=== PATIENT | female | born 1955 | race Caucasian/White ===

== ENCOUNTER 2017-04-05 15:07 | Inpatient (IN) | payer OTHER ==
[~2017-04-05] VITALS: Ht 167.6 cm; Wt 106.6 kg
--- NOTE | ~2017-04-05 | EKG ---
[place], [place] ELECTROCARDIOGRAM REPORT NAME: TANVI NUNES UNIT #: [id number] ROOM: [facility] DOCTOR: AINSLEY ZARATE MD,REJI BIRTHDATE: [birth year] DOS: 04/07/2017 Electrocardiogram done on 04/05/2017, at 4:09 p.m. Normal sinus rhythm noted. Heart rate 87 beats per minute. There was no change of ischemia or arrhythmias. REJI SCHMITZ MD CM:EKGRPT:ELECTROCARDIOGRAM REPORT [id number] REJI ZARATE MD
--- NOTE | ~2017-04-05 | PR ---
[place], [place] PROGRESS NOTE NAME: TANVI NUNES UNIT #: [id number] ROOM: 406 DOCTOR: AINSLEY ZARATE MD,REJI BIRTHDATE: [birth year] DOS: 04/07/2017 SUBJECTIVE: The patient was noted comfortable at this time, resting in the bed, noted with further reduction of the respiratory symptoms, improvement in the shortness of breath and cough. Denies symptoms of chest pain or any hemoptysis. OBJECTIVE: VITAL SIGNS: Which was recorded on the patient shows the temperature noted as normal, respiratory rate recorded as 18, heart rate 91, blood pressure 140/72. Pulse oxygen saturation of the patient was noted as 97% saturation. HEENT: Showed no acute change. NECK: Supple. CARDIOVASCULAR: S1, S2 audible. LUNGS: Noted without any wheezing or crackle. Marked improvement in air entry of the lung were noted bilaterally with occasional wheezing at this time noted. ABDOMEN: Soft, chronic obesity. EXTREMITIES: Shows chronic obesity. IMPRESSION: Progressive and gradual improvement noted in the patient's exacerbation of chronic obstructive pulmonary disease and acute bronchitis. PLAN OF TREATMENT: The patient could be considered for discharge with tapering dose of prednisone and oral antibiotics. Discharge planning was discussed with primary care attending of this patient. REJI SCHMITZ MD CM:PNTRANS [id number] REJI ZARATE MD 04/08/17 0036 interface
--- NOTE | ~2017-04-05 | CON ---
[place], [place] REPORT OF CONSULTATION NAME: TANVI NUNES UNIT #: [id number] ROOM: 406 DOCTOR: REJI STARR MD BIRTHDATE: [birth year] DOS: 04/06/2017 PULMONARY CONSULTATION, EVALUATION AND MANAGEMENT REASON FOR CONSULTATION: To assess the patient's current symptoms of shortness of breath. CONSULTATION REQUESTED BY: Hospitalist services. HISTORY OF PRESENT ILLNESS: This is a 61-year-old white female, who has been known to me with past history of COPD. The patient was seen in my office yesterday. The patient was noted with increased edema of the lower extremities and with symptoms of increased shortness of breath that started over the weekend. The patient does have mild cough without any sputum expectoration. She was also noted with wheezing as well. Denies symptoms of chest pain or any hemoptysis. The patient reported symptoms of weakness and fatigue with that. Denies symptoms of fever or chills. Denies any symptoms of acute hemoptysis. The patient was assessed in the office, pulse ox saturation was noted to be only 90% at rest on room air. She was sent to the Emergency Room to rule out pulmonary embolism and further assessment. She was seen in the Emergency Room, diagnosis of pulmonary embolism was excluded. She has been admitted to the hospital yesterday, currently being managing for acute exacerbation of COPD. Since yesterday, the patient started partial reduction of the symptoms of shortness of breath. The patient does have [id number] cough, which is described to be nonproductive. REVIEW OF SYSTEMS: CONSTITUTIONAL: Fatigue and tiredness reported. No symptoms of fever or chills. EYES: Denies any burning, redness, or tenderness. EARS, NOSE, THROAT SYMPTOMS: Denies sore throat, hoarseness, otalgia, postnasal drainage, or epistaxis. CARDIOVASCULAR: No angina pain, edema, pain of the lower extremity. GASTROINTESTINAL: Dysphagia, nausea, vomiting, diarrhea, abdominal pain, hematemesis, melena, hematochezia. Chronic obesity was known. SKIN: No lesions or rashes. MUSCULOSKELETAL: No acute joint pain, redness, or tenderness. CENTRAL NERVOUS SYSTEM: No dizziness, headache, diplopia, or syncopal episodes. The remaining systems were reviewed. They were noted all negative. PAST MEDICAL HISTORY: 1. Longstanding chronic obstructive pulmonary disease. 2. Gastroesophageal reflux. 3. Morbid obesity. 4. Allergic rhinitis. 5. Essential hypertension. PAST SURGICAL HISTORY: 1. Bilateral carpal tunnel release. [place], [place] REPORT OF CONSULTATION NAME: TANVI NUNES UNIT #: [id number] ROOM: 406 DOCTOR: AINSLEY ZARATE MD,REJI BIRTHDATE: [birth year] 2. C-sections. 3. T and A. 4. Left breast biopsy that was benign. 5. Therapeutic bronchoscopy. SOCIAL HISTORY: The patient is , has 2 children. Currently works at [employer] for the past 37 years. Denies history of alcohol use or any illicit drugs. The tobacco use was noted from the age of [age] years old, 2 packs of cigarettes per day, that was discontinued completely in 2012. FAMILY HISTORY: Noted unknown since the patient was adopted. HOME MEDICATIONS: Noted as use of Symbicort HFA inhaler, Protonix, Singulair, Daliresp, Cardizem-CD, and p.r.n. use of ProAir HFA inhaler. DRUG ALLERGIES: No known drug allergies. PHYSICAL EXAMINATION: GENERAL: This is a 61-year-old female, who has been noted currently awake and alert without any acute distress. Height of 5 feet 6 inches, weight of 235 pounds. VITAL SIGNS: For the patient which has been recorded showed normal temperature, respiratory rate 18-20, heart rate 89-91, blood pressure 112/73-150/90. Pulse oxygen saturation noted on room air as 95% saturation, later on 4 liters nasal cannula 94% saturation. HEENT: Examination shows head was atraumatic. Eyes nonicterus. Decreased posterior pharyngeal space. Head was atraumatic. NECK: Supple. CARDIOVASCULAR: S1, S2 is audible. LUNGS: Moderate reduction of breath sounds noted in the lungs with expiratory wheezing. ABDOMEN: Soft, obese, nontender. Bowel sounds present. EXTREMITIES: The patient noted without any edema, clubbing, or cyanosis. CENTRAL NERVOUS SYSTEM: Cranial nerves 2-12 intact. SKIN: No lesions or rashes. LABORATORY DATA: Lactic acid yesterday noted 1.8 on admission. CBC yesterday on admission noted as normal. CBC that was repeated this morning still remains normal. The CMP that was done just to the Emergency Room, glucose 124, BUN and creatinine were normal. LFTs were normal. C-reactive protein minimally elevated at 0.63. Ultrasound of bilateral lower extremity was done, does not show any evidence of deep venous thrombosis. The patient had additional troponin done after the first one, all 3 sets were noted as normal. CMP this morning, glucose 134. Remaining CMP essentially remains normal. Chest x-ray does not show an acute pulmonary infiltration. The CT of the chest that was done in the Emergency Room and also personally assessed shows limited opacification of the pulmonary artery that was noted suboptimal pulmonary emboli; however, there was no major central pulmonary embolism noted. Changes of centrilobular and paraseptal emphysema was noted. There were no acute pulmonary infiltration. [place], [place] REPORT OF CONSULTATION NAME: TANVI NUNES UNIT #: [id number] ROOM: 406 DOCTOR: REJI STARR MD BIRTHDATE: [birth year] IMPRESSION: 1. Current shortness of breath with some cough related to acute exacerbation of chronic obstructive pulmonary disease. The patient was noted at this time without any evidence of pneumonia. 2. History of chronic morbid obesity as well. 3. Past tobacco use. 4. General anxiety disorder and other medical illnesses. PLAN OF TREATMENT: The patient has been currently getting intravenous antibiotic, Levaquin, bronchodilator q.4h. and also started on Dulera. The Solu-Medrol Currently administered 40 mg b.i.d. that will be continued. Continue to assess the patient for the next 24 hours. Depending on further improvement and resolution of symptoms, she could be considered for home discharge, hopefully tomorrow morning based on improvement in the respiratory status. Other supportive therapy, plan and management to be continued per usual care. Additional treatment changes to be made for the patient based on the progression of the illness. Thanks for allowing me to participate in the care of this patient. REJI SCHMITZ MD CM:CONSTR:REPORT OF CONSULTATION 1320 04/07/17 0657 interface
[~2017-04-05 15:07] MED LIST: ADVAIR DISKUS 51 DSK IH; ALBUTEROL0.63 MG/3 IH; CARDIZEM CD180 MG PO; CIPRO500 MG PO; CLARITIN10 MG PO; DELTASONE10 MG PO; DELTASONE20 M1 PO; LEVOFLOXACIN500 MG PO; MEDROL DOSEPAK4 MG PO; NICODERM14 MG/24 H TD; NORCO 325 MG-7.1 TAB PO; PRILOSEC20 MG PO; SINGULAIR10 MG PO; SPIRIVA18 MCG PO; SYMB160 INH; TOPROL XL50 MG PO; XANAX0.25 MG PO; XANAX0.5 MG PO; ZITHROMAX Z PA250 MG PO
[2017-04-05 15:12] VITALS: BP 142/85
[2017-04-05 15:56] LABS: BASO % 0.1 % (0.0-1.0); HEMATOCRIT 40.4 % (37.0-47.0); HEMOGLOBIN 13.3 g/dl (12.0-16.0); LYMPH # 0.9 10*3/uL (1.3-4.4); LYMPH % 11.2 % (27.0-41.0); MEAN CELL VOLUME 94.6 fl (81.0-99.0); MEAN CORPUSCULAR HGB 31.1 pg (27.0-31.0); MEAN CORPUSCULAR HGB CONC 32.9 g/dl (33.0-37.0); MEAN PLATELET VOLUME 9.7 fl (9.6-12.3); MONO # 0.4 10*3/uL (0.1-1.0); MONO % 4.7 % (3.0-9.0); NEUT # 6.4 10*3/uL (2.3-7.9); NEUT % 83.7 % (47.0-73.0); PLATELET COUNT AUTOMATED 381 10*3/uL (130-400); RED BLOOD COUNT 4.27 10*6/uL (4.10-5.10); RED CELL DISTRI WIDTH 11.7 % (0-14.5); WHITE BLOOD COUNT 7.7 10*3/uL (4.8-10.8)
[2017-04-05 16:13] VITALS: BP 112/73
[2017-04-05 16:14] LABS: ALBUMIN 3.6 gm/dl (3.1-4.5); ALKALINE PHOSPHATASE 99 U/L (45-117); BUN 9 mg/dl (7-24); CHLORIDE 103 mmol/L (98-107); CREATININE 0.87 mg/dL (0.55-1.02); POTASSIUM 4.3 mmol/L (3.5-5.1); SGOT/AST 12 IU/L (3-35); SGPT/ALT 14 U/L (12-78); SODIUM 140 mmol/L (136-145); TOTAL PROTEIN 7.6 gm/dL (6.4-8.2)
[2017-04-05 16:15] LABS: TROPONIN I < 0.015 ng/ml (<0.045)
[2017-04-05 17:39] LABS: BILIRUBIN NEGATIVE (NEGATIVE); BLOOD NEGATIVE (NEGATIVE); CLARITY CLEAR (CLEAR); COLOR YELLOW (YELLOW); GLUCOSE NEGATIVE (NEGATIVE); KETONE NEGATIVE (NEGATIVE); LEUKO ESTERASE NEGATIVE (NEGATIVE); NITRITE NEGATIVE (NEGATIVE); SPECIFIC GRAVITY <= 1.005 (1.005-1.030); UROBILINOGEN 0.2 E.U./dl (0.2-1.0)
[2017-04-05 17:49] LABS: BACTERIA TRACE; RBC 0-2 rbc/hpf (0-2); WBC 0-2 wbc/hpf (0-5)
[2017-04-05] MEDS ORDERED: DALIRESP500 MC1 PO (18:42)
[2017-04-05 20:00] VITALS: BP 128/71
[2017-04-05 23:52] VITALS: BP 150/90
[2017-04-06 04:00] VITALS: BP 137/75
[2017-04-06 07:43] LABS: HEMATOCRIT 39.9 % (37.0-47.0); HEMOGLOBIN 13.1 g/dl (12.0-16.0); LYMPH # 0.8 10*3/uL (1.3-4.4); LYMPH % 12.5 % (27.0-41.0); MEAN CELL VOLUME 94.8 fl (81.0-99.0); MEAN CORPUSCULAR HGB 31.1 pg (27.0-31.0); MEAN CORPUSCULAR HGB CONC 32.8 g/dl (33.0-37.0); MONO # 0.1 10*3/uL (0.1-1.0); MONO % 1.1 % (3.0-9.0); NEUT # 5.6 10*3/uL (2.3-7.9); NEUT % 86.1 % (47.0-73.0); PLATELET COUNT AUTOMATED 320 10*3/uL (130-400); RED BLOOD COUNT 4.21 10*6/uL (4.10-5.10); RED CELL DISTRI WIDTH 11.9 % (0-14.5); WHITE BLOOD COUNT 6.5 10*3/uL (4.8-10.8)
[2017-04-06 08:00] VITALS: BP 130/76
[2017-04-06 08:02] LABS: ALBUMIN 3.4 gm/dl (3.1-4.5); BUN 9 mg/dl (7-24); CHLORIDE 108 mmol/L (98-107); CHOLESTEROL 159 mg/dL (<200); CREATININE 0.84 mg/dL (0.55-1.02); SGOT/AST 10 IU/L (3-35); SGPT/ALT 13 U/L (12-78); SODIUM 143 mmol/L (136-145); TOTAL PROTEIN 7.1 gm/dL (6.4-8.2); TRIGLYCERIDES 67 mg/dl (<150); VLDL CHOLESTEROL 13 mg/dL (6-40)
[2017-04-06 08:11] LABS: ALKALINE PHOSPHATASE 90 U/L (45-117); HDL CHOLESTEROL 82 mg/dl (40-60); LDL CHOLESTEROL 64 mg/dL (9-159)
[2017-04-06 08:37] LABS: VITAMIN D, 25-HYDROXY 17.4 ng/mL (30-100)
[2017-04-06 12:00] VITALS: BP 115/64
[2017-04-06 16:00] VITALS: BP 129/73
[2017-04-06 20:00] VITALS: BP 132/80
[2017-04-07] VITALS: BP 120/70
[2017-04-07 07:09] LABS: BUN 16 mg/dl (7-24); CHLORIDE 109 mmol/L (98-107); CREATININE 0.82 mg/dL (0.55-1.02); SODIUM 145 mmol/L (136-145)
[2017-04-07 08:00] VITALS: BP 140/72
[2017-04-07] MEDS ORDERED: SPIRIVA18 MCG PO (09:48)
[2017-04-07] MEDS ORDERED: PREDNISONE10 MG PO (09:48)
[2017-04-07] MEDS ORDERED: LEVAQUIN500 M2 PO (09:48)
== END 2017-04-07 10:29 | disposition home or self-care (01) | DRG 871 ==
LOC: ED 15:07 → EDHOLD 18:56 → 4E 19:41
PROVIDERS: Emergency Medicine; Family Medicine; Family Medicine Adult Medicine; Hospitalist
DX: A41.9 Sepsis, unspecified organism (principal); J18.9 Pneumonia, unspecified organism; J44.1 Chronic obstructive pulmonary disease with (acute) exacerbation; J44.0 Chronic obstructive pulmonary disease with (acute) lower respiratory infection; K21.9 Gastro-esophageal reflux disease without esophagitis; I10 Essential (primary) hypertension; E66.01 Morbid (severe) obesity due to excess calories; F41.1 Generalized anxiety disorder; J20.9 Acute bronchitis, unspecified

== ENCOUNTER → 2017-05-18 | Outpatient (CLI) | payer OTHER ==
[~2017-05-18] MED LIST changes: +DALIRESP500 MC1 PO; +LEVAQUIN500 M2 PO; +PREDNISONE10 MG PO
== END | disposition home or self-care (01) ==
LOC: LAB 11:46
DX: M47.894 Other spondylosis, thoracic region (principal); J44.9 Chronic obstructive pulmonary disease, unspecified; J98.11 Atelectasis

== ENCOUNTER 2018-03-07 05:45 | Inpatient (IN) | payer OTHER ==
[2018-03-07] VITALS (7 sets, daily range): BP systolic 102–138; BP diastolic 51–86
--- NOTE | ~2018-03-07 | PR ---
[place], [place] PROGRESS NOTE NAME: TANVI NUNES UNIT #: [id number] ROOM: 501 DOCTOR: AINSLEY ZARATE MD,REJI BIRTHDATE: [birth year] DOS: 03/10/2018 SUBJECTIVE: She has been reported with significant reduction in respiratory symptom in the last 24 hours. She denies symptoms of fever, chills, coughing or sputum expectoration, which was noted severe. The symptoms all of them for the patient noted above are improving. OBJECTIVE: VITAL SIGNS: Normal temperature, respiratory rate of 20, heart rate 92, blood pressure 109/61. Pulse oxygen saturation recorded as 95% 2.5 liters nasal cannula. HEENT: Examination shows chronic obesity. NECK: Supple. CARDIOVASCULAR: S1, S2 audible. LUNGS: Scattered expiratory wheezing. No crackles with significant improvement in air entry was noted with reduction of wheezing and other symptoms. ABDOMEN: Noted with moderate obesity. Bowel sounds present. EXTREMITIES: Without any edema, clubbing or cyanosis. IMPRESSION: 1. The patient with resolving acute influenza infection. 2. The patient with acute exacerbation of chronic obstructive pulmonary disease progressively. 3. History of chronic obesity. PLAN OF MANAGEMENT: The patient could be discharged home on oral Tamiflu, tapering dose of prednisone. Outpatient followup is to be established by the patient in the office will be kept. REJI SCHMITZ MD CM:PNTRANS [id number] REJI ZARATE MD 03/13/18 0621 interface
--- NOTE | ~2018-03-07 | CON ---
[place], [place] REPORT OF CONSULTATION NAME: TANVI NUNES UNIT #: [id number] ROOM: 501 DOCTOR: REJI STARR MD BIRTHDATE: [birth year] DOS: 03/09/2018 PULMONARY CONSULTATION, EVALUATION AND MANAGEMENT CONSULTATION REQUESTED BY: Hospitalist Service. REASON FOR CONSULTATION: Assessment of ongoing respiratory symptoms, nonresolving; acute exacerbation of chronic obstructive pulmonary disease; and influenza A infection. HISTORY OF PRESENT ILLNESS: This is a 62-year-old white female known to me from the past. The patient has been noted with ongoing respiratory symptom in the past few days, which has been noted progressively worsened. The symptoms have been present for about 2 weeks. Started with chest congestion, cough. She has been seen by the primary care physician. The patient has been prescribed the antibiotics and the steroids. The symptoms are unresolved. She has been seen by her doctor at the work. The patient has been given another course of antibiotic. The patient's symptoms have worsened significantly requiring assessment in the Emergency Room. She has been assessed in the Emergency Room and currently admitted to the hospital with acute exacerbation of chronic obstructive pulmonary disease, also noted influenza. Nasal antigen positive as well for the patient on admission as well. Noted respiratory isolation precautions. She has not been noted any major change in the respiratory symptom in the last 24 hours, still noted with nonproductive cough, wheezing and shortness of breath with mild exertion. REVIEW OF SYSTEMS: CONSTITUTIONAL: Fatigue and tiredness reported. No symptoms of fever or chills. EYES: Denied burning, redness, or tenderness. EAR, NOSE, THROAT SYMPTOMS: Denies sore throat, hoarseness, otalgia, postnasal drainage or epistaxis. CARDIOVASCULAR: No angina pain, edema, or pain in the lower extremities. GASTROINTESTINAL: No dysphagia, nausea, vomiting, diarrhea, abdominal pain, hematemesis, melena, hematochezia, or abnormal weight loss. MUSCULOSKELETAL: No joint pain, redness, or tenderness. GENITOURINARY: No dysuria, suprapubic pain, hematuria. SKIN: Denies lesions or rashes. CENTRAL NERVOUS SYSTEM: Denies headache, diplopia, syncopal episodes or tingling sensation of the extremities. Remaining systems were reviewed. They were noted all negative. PAST MEDICAL HISTORY: 1. Chronic obstructive pulmonary disease. 2. Gastroesophageal reflux. 3. Allergic rhinitis. 4. Essential hypertension. 5. Morbid obesity. [place], [place] REPORT OF CONSULTATION NAME: TANVI NUNES UNIT #: [id number] [place] [facility] [place] DOCTOR: AINSLEY ZARATE MD,REJI BIRTHDATE: [birth year] PAST SURGICAL HISTORY: 1. Bilateral carpal tunnel release. 2. . 3. T and A. 4. Left breast biopsy. 5. Therapeutic bronchoscopy. SOCIAL HISTORY: The patient is , lives at home, has 2 children. Works at [employer]. She has been noted exposure to the dust at her job in the past. She denies alcohol use or illicit drug use. Tobacco use noted at age of [age] years old, 2 packs of cigarettes per day until 2012. FAMILY HISTORY: Unknown as the patient was adopted. CURRENT MEDICATIONS: Administered at this hospitalization. Use of Solu-Medrol 40 mg q.8 hours, Mucinex, hydrochlorothiazide, omeprazole, Daliresp, Singulair, Pulmicort Respules, Lovenox for DVT prophylaxis, DuoNeb, Xanax, and Tamiflu. DRUG ALLERGIES: The patient noted no known drug allergies. PHYSICAL EXAMINATION: GENERAL: This is a 62-year-old female who has been currently noted awake and alert without any acute distress, comfortably sitting on the bed this morning of assessment. VITAL SIGNS: Height of 5 feet 6 inches, weight of 205 pounds, BMI of 33. Normal temperature of 99.8 degrees Fahrenheit in the last 24 hours. Respiratory rate range between 18-29, heart rate 111-98, blood pressure 120/70-108/62. Pulse oxygen saturation recorded as 98% saturation on 4 liters nasal cannula. HEENT: Examination shows head was atraumatic. Eyes nonicterus. NECK: Supple. CARDIOVASCULAR: S1, S2 is audible. LUNGS: The patient was noted without any crackles. Decreased breath sounds with diffuse bilateral expiratory wheezing. EXTREMITIES: The patient was noted without any acute edema. Chronic obesity findings. There were no cyanosis or clubbing. MUSCULOSKELETAL: Without any acute deformities. CENTRAL NERVOUS SYSTEM: Cranial nerves 2 through 12 intact. No focal deficit. LABORATORY DATA: CBC that was done on 03/07/2018 was noted as normal CBC. PT/PTT on 03/07/2018 normal. CMP on 03/07/2018, normal BUN and creatinine. Total protein of 6.3. Influenza A and B, nasal washing antigen positive for influenza A. CBC that was done yesterday remains essentially normal. CMP that was done yesterday, normal BUN and creatinine, glucose mildly elevated as 130. Blood culture from the 30 showed no bacterial growth. The chest x-ray, one-view was done in the Emergency Room and was reviewed and shows no acute pulmonary infiltration or other abnormalities. IMPRESSION: 1. Acute exacerbation of chronic obstructive pulmonary disease with acute [place], [place] REPORT OF CONSULTATION NAME: TANVI NUNES UNIT #: [id number] [place]: [facility] [place] [facility] [place] DOCTOR: REJI STARR MD BIRTHDATE: [birth year] bronchitis related to influenza A infection. 2. The patient with chronic moderate obesity. 3. The patient with mild hyperglycemia related to corticosteroids and history of gastroesophageal reflux and essential hypertension. PLAN OF MANAGEMENT: Continue the dose of current corticosteroids and bronchodilators. Change the DuoNeb to albuterol sulfate for the COPD management. Continue antibiotic treatment with the Tamiflu. Additional treatment changes will be made based on progression of the illness. Sputum for Gram stain culture could be obtained for the patient to assess for any superimposed infection. She has been given couple of courses of antibiotics. The patient failed to respond to the treatment for that. This is suggestive of viral infection. Thanks for allowing me to participate in the care of this patient. REJI SCHMITZ MD CM:CONSTR:REPORT OF CONSULTATION 1344 03/10/18 0430 interface
--- NOTE | ~2018-03-07 | EKG ---
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
[~2018-03-07 05:45] MED LIST changes: +AUGMENTIN 875875 MG PO; +VITAMIN D5000 UNI1 PO
[2018-03-07 07:02] LABS: BASO % 0.1 % (0.0-1.0); EOS % 0.2 % (1.0-4.0); HEMATOCRIT 40.5 % (37.0-47.0); LYMPH # 0.3 10*3/uL (1.3-4.4); LYMPH % 3.2 % (27.0-41.0); MEAN CELL VOLUME 98.5 fl (81.0-99.0); MEAN CORPUSCULAR HGB 31.6 pg (27.0-31.0); MEAN CORPUSCULAR HGB CONC 32.1 g/dl (33.0-37.0); MEAN PLATELET VOLUME 9.3 fl (9.6-12.3); MONO # 0.8 10*3/uL (0.1-1.0); MONO % 7.7 % (3.0-9.0); NEUT # 9.3 10*3/uL (2.3-7.9); NEUT % 88.2 % (47.0-73.0); PLATELET COUNT AUTOMATED 209 10*3/uL (130-400); RED BLOOD COUNT 4.11 10*6/uL (4.10-5.10); RED CELL DISTRI WIDTH 13.4 % (0-14.5); WHITE BLOOD COUNT 10.6 10*3/uL (4.8-10.8)
[2018-03-07 07:09] LABS: ACT PARTIAL THROMBO TIME 21.1 SECONDS (20.8-31.5)
[2018-03-07 07:14] LABS: ALBUMIN 3.1 gm/dl (3.1-4.5); ALKALINE PHOSPHATASE 78 U/L (45-117); BUN 16 mg/dl (7-24); CHLORIDE 102 mmol/L (98-107); CREATININE 0.79 mg/dL (0.55-1.02); POTASSIUM 4.4 mmol/L (3.5-5.1); SGOT/AST 16 IU/L (3-35); SGPT/ALT 16 U/L (12-78); SODIUM 140 mmol/L (136-145); TOTAL PROTEIN 6.3 gm/dL (6.4-8.2)
[2018-03-07 07:17] LABS: TROPONIN I < 0.015 ng/ml (<0.045)
[2018-03-07] MEDS ORDERED: NORCO 5-325 TA1 EACH PO (12:29)
[2018-03-07] MEDS ORDERED: HYDR25T PO (12:30)
[2018-03-08] VITALS: BP 116/64
[2018-03-08 06:36] LABS: HEMATOCRIT 40.9 % (37.0-47.0); HEMOGLOBIN 12.4 g/dl (12.0-16.0); LYMPH # 0.4 10*3/uL (1.3-4.4); LYMPH % 4.1 % (27.0-41.0); MEAN CELL VOLUME 100.5 fl (81.0-99.0); MEAN CORPUSCULAR HGB 30.5 pg (27.0-31.0); MEAN CORPUSCULAR HGB CONC 30.3 g/dl (33.0-37.0); MEAN PLATELET VOLUME 9.5 fl (9.6-12.3); MONO # 0.6 10*3/uL (0.1-1.0); MONO % 6.7 % (3.0-9.0); NEUT # 7.7 10*3/uL (2.3-7.9); NEUT % 88.7 % (47.0-73.0); PLATELET COUNT AUTOMATED 204 10*3/uL (130-400); RED BLOOD COUNT 4.07 10*6/uL (4.10-5.10); RED CELL DISTRI WIDTH 13.1 % (0-14.5); WHITE BLOOD COUNT 8.6 10*3/uL (4.8-10.8)
[2018-03-08 06:56] LABS: ALBUMIN 2.7 gm/dl (3.1-4.5); ALKALINE PHOSPHATASE 73 U/L (45-117); BUN 17 mg/dl (7-24); CHLORIDE 104 mmol/L (98-107); CHOLESTEROL 145 mg/dL (<200); CREATININE 0.64 mg/dL (0.55-1.02); FREE T4 0.94 ng/dl (0.76-1.46); HDL CHOLESTEROL 91 mg/dl (40-60); LDL CHOLESTEROL 39 mg/dL (9-159); PHOSPHOROUS 3.3 mg/dL (2.5-4.9); POTASSIUM 4.1 mmol/L (3.5-5.1); SGOT/AST 13 IU/L (3-35); SGPT/ALT 18 U/L (12-78); SODIUM 143 mmol/L (136-145); TOTAL PROTEIN 6.1 gm/dL (6.4-8.2); TRIGLYCERIDES 76 mg/dl (<150); VLDL CHOLESTEROL 15 mg/dL (6-40)
[2018-03-08 07:00] LABS: THYROID STIM HORMONE (HS) 0.169 uIU/ml (0.358-4.75)
[2018-03-08 07:42] LABS: VITAMIN D, 25-HYDROXY 17.1 ng/mL (30-100)
[2018-03-08 08:00] VITALS: BP 122/78
[2018-03-08 12:00] VITALS: BP 120/76
[2018-03-08 16:00] VITALS: BP 130/70
[2018-03-08 20:00] VITALS: BP 120/70
[2018-03-09] VITALS: BP 109/61; BP 125/63
[2018-03-09 02:00] VITALS: BP 146/85
[2018-03-09 08:00] VITALS: BP 120/82
[2018-03-09 16:00] VITALS: BP 112/69
[2018-03-09 20:00] VITALS: BP 121/61
[2018-03-10] VITALS: BP 114/64
[2018-03-10 07:41] LABS: HEMATOCRIT 45.1 % (37.0-47.0); HEMOGLOBIN 14.6 g/dl (12.0-16.0); MEAN CELL VOLUME 95.6 fl (81.0-99.0); MEAN CORPUSCULAR HGB 30.9 pg (27.0-31.0); MEAN CORPUSCULAR HGB CONC 32.4 g/dl (33.0-37.0); MEAN PLATELET VOLUME 9.6 fl (9.6-12.3); PLATELET COUNT AUTOMATED 243 10*3/uL (130-400); RED BLOOD COUNT 4.72 10*6/uL (4.10-5.10); RED CELL DISTRI WIDTH 12.5 % (0-14.5); WHITE BLOOD COUNT 10.3 10*3/uL (4.8-10.8)
[2018-03-10 07:55] LABS: ALBUMIN 3.1 gm/dl (3.1-4.5); ALKALINE PHOSPHATASE 79 U/L (45-117); BUN 22 mg/dl (7-24); CHLORIDE 97 mmol/L (98-107); CREATININE 0.96 mg/dL (0.55-1.02); POTASSIUM 3.8 mmol/L (3.5-5.1); SGOT/AST 13 IU/L (3-35); SGPT/ALT 20 U/L (12-78); SODIUM 137 mmol/L (136-145); TOTAL PROTEIN 6.7 gm/dL (6.4-8.2)
[2018-03-10 08:00] VITALS: BP 109/61
[2018-03-10 08:30] LABS: ATYPICAL LYMPHS 1 % (0-0); PLATELET SUFFICIENCY NORMAL (NORMAL); TOTAL CELLS COUNTED 100 #CELLS
[2018-03-10] MEDS ORDERED: TAMIFLU 75MG CA75 MG PO (12:25)
[2018-03-10] MEDS ORDERED: MUCINEX ER600 MG PO (12:25)
[2018-03-10] MEDS ORDERED: PREDNISONE10 MG PO (12:25)
== END 2018-03-10 13:21 | disposition home or self-care (01) | DRG 871 ==
LOC: ED 05:45 → 5E 08:29 → EDHOLD 08:29 → 5E 08:36
PROVIDERS: Internal Medicine; Registered Nurse; Student in an Organized Health Care Education/Training Program; ADMIT Internal Medicine
DX: A41.9 Sepsis, unspecified organism (principal); J10.00 Influenza due to other identified influenza virus with unspecified type of pneumonia; J96.21 Acute and chronic respiratory failure with hypoxia; J44.0 Chronic obstructive pulmonary disease with (acute) lower respiratory infection; E44.0 Moderate protein-calorie malnutrition; J44.1 Chronic obstructive pulmonary disease with (acute) exacerbation; E66.01 Morbid (severe) obesity due to excess calories; R73.9 Hyperglycemia, unspecified; R65.20 Severe sepsis without septic shock; I10 Essential (primary) hypertension; F41.9 Anxiety disorder, unspecified; E83.51 Hypocalcemia; K21.9 Gastro-esophageal reflux disease without esophagitis; T38.0X5A Adverse effect of glucocorticoids and synthetic analogues, initial encounter; Y92.89 Other specified places as the place of occurrence of the external cause; Z99.81 Dependence on supplemental oxygen; Z87.891 Personal history of nicotine dependence; Z79.899 Other long term (current) drug therapy; Z68.33 Body mass index [BMI] 33.0-33.9, adult

== ENCOUNTER 2018-11-22 12:08 | Emergency (ER) | payer OTHER ==
[~2018-11-22] VITALS: Wt 93.0 kg
[~2018-11-22 12:08] MED LIST changes: +HYDR25T PO; +MUCINEX ER600 MG PO; +NORCO 5-325 TA1 EACH PO; +TAMIFLU 75MG CA75 MG PO
[2018-11-22 12:09] VITALS: BP 120/79
[2018-11-22] MEDS ORDERED: CEPHALEXIN500 M1 PO (14:20)
== END 2018-11-22 14:40 | disposition home or self-care (01) ==
LOC: ED 12:08
DX: S61.213A Laceration without foreign body of left middle finger without damage to nail, initial encounter (principal); S61.215A Laceration without foreign body of left ring finger without damage to nail, initial encounter; Z23 Encounter for immunization; Z79.899 Other long term (current) drug therapy; Z87.891 Personal history of nicotine dependence; W23.0XXA Caught, crushed, jammed, or pinched between moving objects, initial encounter; Y93.89 Activity, other specified; Y92.89 Other specified places as the place of occurrence of the external cause; Y99.8 Other external cause status

== ENCOUNTER → 2019-01-18 | Outpatient (CLI) | payer OTHER ==
[~2019-01-18] MED LIST changes: +CEPHALEXIN500 M1 PO
== END | disposition home or self-care (01) ==
LOC: RESCLI 00:36
DX: Z76.89 Persons encountering health services in other specified circumstances (principal); J43.9 Emphysema, unspecified; I10 Essential (primary) hypertension; J30.2 Other seasonal allergic rhinitis; K21.9 Gastro-esophageal reflux disease without esophagitis; G89.29 Other chronic pain; M54.2 Cervicalgia; F41.9 Anxiety disorder, unspecified; E66.9 Obesity, unspecified; Z79.899 Other long term (current) drug therapy; Z87.891 Personal history of nicotine dependence

== ENCOUNTER → 2019-10-25 | Outpatient (CLI) | payer OTHER | END | disposition home or self-care (01) | LOC: RESCLI 01:15 | PROVIDERS: ATTEND Internal Medicine | DX: F41.9 Anxiety disorder, unspecified (principal); M54.2 Cervicalgia; J43.9 Emphysema, unspecified; I10 Essential (primary) hypertension; J30.2 Other seasonal allergic rhinitis; K21.9 Gastro-esophageal reflux disease without esophagitis; Z79.899 Other long term (current) drug therapy; Z87.891 Personal history of nicotine dependence; Z98.890 Other specified postprocedural states ==

== ENCOUNTER → 2020-02-05 | Outpatient (CLI) | payer OTHER | END | disposition home or self-care (01) | LOC: RESCLI 00:32 | PROVIDERS: ATTEND Internal Medicine Nephrology | DX: F41.9 Anxiety disorder, unspecified (principal); M54.2 Cervicalgia; J43.9 Emphysema, unspecified; I10 Essential (primary) hypertension; J30.2 Other seasonal allergic rhinitis; K21.9 Gastro-esophageal reflux disease without esophagitis; Z79.899 Other long term (current) drug therapy ==

== ENCOUNTER → 2020-04-14 | Outpatient (CLI) | payer OTHER | END | disposition home or self-care (01) | LOC: RESCLI 02:50 | PROVIDERS: ATTEND Internal Medicine | DX: I10 Essential (primary) hypertension (principal); M54.2 Cervicalgia; J43.9 Emphysema, unspecified; K21.9 Gastro-esophageal reflux disease without esophagitis; J30.2 Other seasonal allergic rhinitis; K57.90 Diverticulosis of intestine, part unspecified, without perforation or abscess without bleeding; Z79.899 Other long term (current) drug therapy; Z98.890 Other specified postprocedural states ==

== ENCOUNTER → 2020-08-12 | Outpatient (CLI) | payer OTHER | END | disposition home or self-care (01) | LOC: RESCLI 01:20 | PROVIDERS: ATTEND Internal Medicine Nephrology | DX: R60.0 Localized edema (principal); R06.02 Shortness of breath; I10 Essential (primary) hypertension; K21.9 Gastro-esophageal reflux disease without esophagitis; J30.2 Other seasonal allergic rhinitis; J43.9 Emphysema, unspecified; G89.29 Other chronic pain; Z98.890 Other specified postprocedural states; Z87.891 Personal history of nicotine dependence ==

== ENCOUNTER → 2020-12-02 | Outpatient (CLI) | payer OTHER | END | disposition home or self-care (01) | LOC: RESCLI 00:50 | PROVIDERS: ATTEND Internal Medicine Nephrology | DX: J43.9 Emphysema, unspecified (principal); I10 Essential (primary) hypertension; K21.9 Gastro-esophageal reflux disease without esophagitis; G89.29 Other chronic pain; F41.9 Anxiety disorder, unspecified; E55.9 Vitamin D deficiency, unspecified; E78.5 Hyperlipidemia, unspecified; Z12.4 Encounter for screening for malignant neoplasm of cervix; Z79.899 Other long term (current) drug therapy ==

== ENCOUNTER → 2021-04-14 | Outpatient (CLI) | payer OTHER | END | disposition home or self-care (01) | LOC: RESCLI 00:27 | PROVIDERS: ATTEND Internal Medicine Nephrology | DX: J43.9 Emphysema, unspecified (principal); I10 Essential (primary) hypertension; J30.2 Other seasonal allergic rhinitis; K21.9 Gastro-esophageal reflux disease without esophagitis; G89.29 Other chronic pain; E55.9 Vitamin D deficiency, unspecified; E78.5 Hyperlipidemia, unspecified; J44.1 Chronic obstructive pulmonary disease with (acute) exacerbation; Z79.899 Other long term (current) drug therapy ==

== ENCOUNTER → 2021-04-28 | Outpatient (CLI) | payer OTHER | END | disposition home or self-care (01) | LOC: RESCLI 01:55 | PROVIDERS: ATTEND Internal Medicine Nephrology | DX: R06.00 Dyspnea, unspecified (principal); J44.1 Chronic obstructive pulmonary disease with (acute) exacerbation; Z79.899 Other long term (current) drug therapy ==

== ENCOUNTER → 2021-06-10 | Outpatient (CLI) | payer OTHER | END | disposition home or self-care (01) | LOC: CARD 14:49 | PROVIDERS: ATTEND Internal Medicine | DX: R06.00 Dyspnea, unspecified (principal) ==

== ENCOUNTER → 2021-08-31 | Outpatient (CLI) | payer OTHER ==
[~2021-08-31] MED LIST changes: +PHENERGAN25 M3 PO
== END | disposition home or self-care (01) ==
LOC: RESCLI 01:10
PROVIDERS: ATTEND Student in an Organized Health Care Education/Training Program
DX: I10 Essential (primary) hypertension (principal); K21.9 Gastro-esophageal reflux disease without esophagitis; J30.2 Other seasonal allergic rhinitis; J43.9 Emphysema, unspecified; Z87.891 Personal history of nicotine dependence; Z79.899 Other long term (current) drug therapy

== ENCOUNTER 2021-09-02 16:28 | Emergency (ER) | payer OTHER ==
[~2021-09-02] VITALS: Ht 167.6 cm; Wt 86.2 kg
[~2021-09-02 16:28] MED LIST changes: -PHENERGAN25 M3 PO
[2021-09-02 17:51] VITALS: BP 144/104
[2021-09-02 19:23] LABS: BASO % 0.4 % (0.0-1.0); EOS # 0.1 10*3/uL (0.0-0.4); LYMPH # 1.5 10*3/uL (1.3-4.4); LYMPH % 21.7 % (27.0-41.0); MEAN CORPUSCULAR HGB CONC 32.9 g/dl (33.0-37.0); MONO # 0.5 10*3/uL (0.1-1.0); MONO % 7.3 % (3.0-9.0); NEUT # 4.8 10*3/uL (2.3-7.9); NEUT % 68.3 % (47.0-73.0); PLATELET COUNT AUTOMATED 239 10*3/uL (130-400); RED BLOOD COUNT 4.36 10*6/uL (4.10-5.10); RED CELL DISTRI WIDTH 11.8 % (0-14.5)
[2021-09-02 19:39] LABS: ALKALINE PHOSPHATASE 76 U/L (45-117); BUN 8 mg/dl (7-24); CHLORIDE 108 mmol/L (98-107); CREATININE 0.79 mg/dL (0.55-1.02); LIPASE 62 U/L (73-393); POTASSIUM 3.9 mmol/L (3.5-5.1); SGOT/AST 12 IU/L (3-35); SGPT/ALT 11 U/L (12-78); SODIUM 139 mmol/L (136-145); TOTAL PROTEIN 6.7 gm/dL (6.4-8.2)
[2021-09-02] MEDS ORDERED: PHENERGAN25 M3 PO (23:01)
== END 2021-09-02 23:10 | disposition home or self-care (01) ==
LOC: ED 16:28
PROVIDERS: Physician Assistant
DX: R10.9 Unspecified abdominal pain (principal); R11.2 Nausea with vomiting, unspecified; Z87.891 Personal history of nicotine dependence; Z98.890 Other specified postprocedural states; Z79.899 Other long term (current) drug therapy

== ENCOUNTER → 2022-02-21 | Outpatient (CLI) | payer OTHER ==
[~2022-02-21] MED LIST changes: +PHENERGAN25 M3 PO
== END | disposition home or self-care (01) ==
LOC: RESCLI 14:43
PROVIDERS: ATTEND Family Medicine
DX: J43.9 Emphysema, unspecified (principal); I10 Essential (primary) hypertension; K21.9 Gastro-esophageal reflux disease without esophagitis; Z98.890 Other specified postprocedural states; Z72.89 Other problems related to lifestyle; Z79.899 Other long term (current) drug therapy

== ENCOUNTER → 2022-04-18 | Outpatient (CLI) | payer MEDICARE | END | disposition home or self-care (01) | LOC: MRI 04-08 01:06 | PROVIDERS: ATTEND Specialist | DX: I67.82 Cerebral ischemia (principal); H90.5 Unspecified sensorineural hearing loss ==

== ENCOUNTER 2022-07-14 18:48 | Inpatient (IN) | payer MEDICARE ==
[~2022-07-14] VITALS: Ht 167.6 cm; Wt 86.4 kg
[2022-07-14 19:32] VITALS: BP 121/74
[2022-07-14] MEDS ORDERED: TRELEGY ELLIPT1 EACH INH (19:34)
[2022-07-14 20:28] LABS: BASO % 0.1 % (0.0-1.0); LYMPH # 0.7 10*3/uL (1.3-4.4); MEAN CORPUSCULAR HGB 31.3 pg (27.0-31.0); MEAN CORPUSCULAR HGB CONC 32.3 g/dl (33.0-37.0); MEAN PLATELET VOLUME 9.2 fl (9.6-12.3); MONO # 0.8 10*3/uL (0.1-1.0); MONO % 9.1 % (3.0-9.0); NEUT # 7.6 10*3/uL (2.3-7.9); NEUT % 82.5 % (47.0-73.0); PLATELET COUNT AUTOMATED 281 10*3/uL (130-400); RED BLOOD COUNT 4.02 10*6/uL (4.10-5.10); RED CELL DISTRI WIDTH 11.9 % (0-14.5); WHITE BLOOD COUNT 9.2 10*3/uL (4.8-10.8)
[2022-07-14 20:51] LABS: ALKALINE PHOSPHATASE 75 U/L (46-116); BUN 10 mg/dl (9-23); CHLORIDE 105 mmol/L (98-107); POTASSIUM 3.5 mmol/L (3.4-5.1); SGPT/ALT 8 U/L (10-49); TOTAL PROTEIN 6.2 gm/dL (6.0-8.0)
[2022-07-14 23:12] VITALS: BP 129/70
[2022-07-15 03:32] VITALS: BP 128/75
[2022-07-15 07:46] LABS: HEMATOCRIT 38.6 % (37.0-47.0); LYMPH # 0.8 10*3/uL (1.3-4.4); LYMPH % 8.8 % (27.0-41.0); MEAN CELL VOLUME 96.3 fl (81.0-99.0); MEAN CORPUSCULAR HGB 31.4 pg (27.0-31.0); MEAN CORPUSCULAR HGB CONC 32.6 g/dl (33.0-37.0); MEAN PLATELET VOLUME 9.4 fl (9.6-12.3); MONO # 0.3 10*3/uL (0.1-1.0); MONO % 3.5 % (3.0-9.0); NEUT % 87.2 % (47.0-73.0); PLATELET COUNT AUTOMATED 272 10*3/uL (130-400); RED BLOOD COUNT 4.01 10*6/uL (4.10-5.10); RED CELL DISTRI WIDTH 11.8 % (0-14.5); WHITE BLOOD COUNT 9.1 10*3/uL (4.8-10.8)
[2022-07-15 08:14] VITALS: BP 125/79
[2022-07-15 08:30] LABS: BUN 11 mg/dl (9-23); CHLORIDE 104 mmol/L (98-107); CHOLESTEROL 130 mg/dL (<200); FREE T4 1.21 ng/dl (0.89-1.76); LDL CHOLESTEROL 48 mg/dL (9-159); POTASSIUM 4.4 mmol/L (3.4-5.1); TRIGLYCERIDES 62 mg/dl (<150)
[2022-07-15 08:32] LABS: VITAMIN D, 25-HYDROXY 39.6 ng/mL (30-100)
[2022-07-15 16:20] VITALS: BP 129/75
[2022-07-15 20:00] VITALS: BP 148/65
[2022-07-16] VITALS: BP 137/72
[2022-07-16 06:11] LABS: BUN 14 mg/dl (9-23); CHLORIDE 105 mmol/L (98-107)
[2022-07-16 08:00] VITALS: BP 137/81
[2022-07-16 12:00] VITALS: BP 155/86
[2022-07-16] MEDS ORDERED: AUGMENTIN 500500 M1 PO (12:34)
[2022-07-16] MEDS ORDERED: VIBRA-TAB100 MG PO (12:34)
[2022-07-16] MEDS ORDERED: PREDNISONE10 MG PO (12:34)
== END 2022-07-16 13:40 | disposition home or self-care (01) | DRG 191 ==
LOC: ED 18:48 → EDHOLD 21:08 → 4E 07-15 14:07
PROVIDERS: Internal Medicine; Student in an Organized Health Care Education/Training Program; ADMIT Internal Medicine; ATTEND Internal Medicine
DX: J44.1 Chronic obstructive pulmonary disease with (acute) exacerbation (principal); E44.1 Mild protein-calorie malnutrition; R73.9 Hyperglycemia, unspecified; F41.9 Anxiety disorder, unspecified; K21.9 Gastro-esophageal reflux disease without esophagitis; I10 Essential (primary) hypertension; E55.9 Vitamin D deficiency, unspecified; Z98.51 Tubal ligation status; Z98.891 History of uterine scar from previous surgery; Z87.891 Personal history of nicotine dependence; Z79.51 Long term (current) use of inhaled steroids; Z79.1 Long term (current) use of non-steroidal anti-inflammatories (NSAID); Z79.899 Other long term (current) drug therapy

== ENCOUNTER → 2022-11-09 | Outpatient (CLI) | payer MEDICARE ==
[~2022-11-09] MED LIST changes: +AUGMENTIN 500500 M1 PO; +TRELEGY ELLIPT1 EACH INH; +VIBRA-TAB100 MG PO
== END | disposition home or self-care (01) ==
LOC: MRI 11-08 14:00
PROVIDERS: ATTEND Otolaryngology Otology & Neurotology
DX: D33.3 Benign neoplasm of cranial nerves (principal); R90.82 White matter disease, unspecified

== ENCOUNTER → 2023-11-27 | Outpatient (CLI) | payer MEDICARE ==
[~2023-11-27] MED LIST changes: +GADOTERATE MEGLUMINE 10 MMOL/20 ML VIAL IV ONE
== END | disposition home or self-care (01) ==
LOC: MRI 13:38
PROVIDERS: ATTEND Otolaryngology Otology & Neurotology
DX: D33.3 Benign neoplasm of cranial nerves (principal); G93.89 Other specified disorders of brain

== ENCOUNTER → 2024-03-21 | Outpatient (CLI) | payer MEDICARE ==
[~2024-03-21] MED LIST changes: -GADOTERATE MEGLUMINE 10 MMOL/20 ML VIAL IV ONE
== END | disposition home or self-care (01) ==
LOC: MRI 09:41
PROVIDERS: ATTEND Nurse Practitioner
DX: M47.814 Spondylosis without myelopathy or radiculopathy, thoracic region (principal); M54.6 Pain in thoracic spine